=== PATIENT | female | born 1980 | race Caucasian/White ===

== ENCOUNTER 2019-06-28 11:13 | Emergency (ER) | payer OTHER ==
[~2019-06-28] VITALS: Ht 162.6 cm; Wt 65.3 kg
[2019-06-28 11:45] VITALS: BP 135/82; Ht 162.6 cm; Wt 65.3 kg
== END 2019-06-28 12:30 | disposition left against medical advice (07) ==
LOC: ED 11:13
DX: Z53.21 Procedure and treatment not carried out due to patient leaving prior to being seen by health care provider (principal)